=== PATIENT | female | born 1965 | race Caucasian/White ===

== ENCOUNTER 2023-02-09 11:57 | Outpatient (CLI) | payer BC | END 2023-02-09 11:58 | disposition home or self-care (01) | LOC: CSHMAMMO 11:57 | PROVIDERS: ATTEND Family Medicine | DX: Z12.31 Encounter for screening mammogram for malignant neoplasm of breast (principal); Z80.3 Family history of malignant neoplasm of breast | CPT/HCPCS: 77063; 77067 ==

== ENCOUNTER 2023-04-22 01:37 | Emergency (ER) | payer BC ==
[2023-04-22 02:12] LABS: #Basophils 0.1 10x3/uL (0.0-0.2); #Eosinphils 0.3 10x3/uL (0.0-0.5); #Monocytes 0.7 10x3/uL (0.0-1.1); %Basophils 0.8 % (0.0-2.0); %Eosinophils 3.5 % (0.0-6.0); %Lymphocytes 40.7 % (18.0-47.0); %Monocytes 7.8 % (0.0-10.0); Hemoglobin 11.2 g/dL (12.0-15.5); Mean Corpuscular Hemoglobin 24.3 pg (27.0-33.0); Mean Corpuscular Volume 78.5 fl (81.6-98.3); Platelet Count 302 10x3/uL (150-450); RBC Distribution Width 18.5 % (11.5-14.5); White Blood Cell (WBC) Count 8.5 10x3/uL (3.5-10.5)
[2023-04-22 02:25] LABS: BHCG - Serum Negative (NEGATIVE); Pregs Control Background? CLEAR/WHITE (CLR/WHITE); Pregs Control Bar Appear? YES (CONTROL BAR)
[2023-04-22 02:27] LABS: ALT (SGPT) 19 U/L (8-55); AST (SGOT) 19 U/L (5-34); Albumin 4.3 g/dL (3.5-5.0); Alkaline Phosphatase 100 U/L (40-110); Anion Gap 18 mmol/L (10-20); BUN (Urea Nitrogen) 17 mg/dL (9.8-20.1); Bilirubin, Total 0.2 mg/dL (0.2-1.2); Calc. Creatinine Clearance 0 mL/min (70-130); Calcium 9.2 mg/dL (7.8-10.44); Carbon Dioxide 24 mmol/L (22-29); Chloride 105 mmol/L (98-107); Estimated GFR 63; Globulin 3.3 g/dL (2.4-3.5); Glucose 138 mg/dL (70-105); Potassium 3.7 mmol/L (3.5-5.1); Protein, Total 7.6 g/dL (6.0-8.3); Sodium 143 mmol/L (136-145)
== END 2023-04-22 06:41 | disposition home or self-care (01) ==
LOC: CSHERS 01:37
DX: N94.6 Dysmenorrhea, unspecified (principal); E78.5 Hyperlipidemia, unspecified
CPT/HCPCS: 76856; 80053; 84703; 85025; 86850; 86900; 86901

== ENCOUNTER 2023-07-19 06:08 | Day surgery (SDC) | payer BC ==
[2023-07-14 09:52] LABS: Hematocrit 37.5 % (34.9-44.5); Hemoglobin 11.2 g/dL (12.0-15.5); Mean Corpuscular HGB CONC 29.9 g/dL (32.0-36.0); Mean Corpuscular Hemoglobin 23.5 pg (27.0-33.0); Mean Corpuscular Volume 78.8 fl (81.6-98.3); Mean Platelet Volume 10.4 fl (7.4-10.4); Platelet Count 242 10x3/uL (150-450); RBC Distribution Width 16.1 % (11.5-14.5); Red Blood Cell (RBC) Count 4.76 10x6/uL (3.90-5.03)
[2023-07-14 10:20] LABS: BHCG - Serum Negative (NEGATIVE); Pregs Control Background? CLEAR/WHITE (CLR/WHITE); Pregs Control Bar Appear? YES (CONTROL BAR)
[2023-07-14 11:14] LABS: Anion Gap 15 mmol/L (10-20); BUN (Urea Nitrogen) 13 mg/dL (9.8-20.1); Calc. Creatinine Clearance 0 mL/min (70-130); Calcium 9.1 mg/dL (7.8-10.44); Carbon Dioxide 21 mmol/L (22-29); Chloride 105 mmol/L (98-107); Estimated GFR 81; Glucose 133 mg/dL (70-105); Potassium 4.1 mmol/L (3.5-5.1); Sodium 137 mmol/L (136-145)
[2023-07-15 08:34] VITALS: BMI 44.4
[2023-07-19] MEDS ORDERED: Gabapentin 300 MG CAP ONE (06:12)
[2023-07-19] MEDS ORDERED: Famotidine/PF 20 mg/2ml Vial ONE (06:12)
[2023-07-19] MEDS ORDERED: CeleCOXIB 100 MG CAP ONE (06:12)
[2023-07-19] MEDS ORDERED: Bupivacaine PF 0.5% 30 ML VIAL ONE (06:23)
[2023-07-19] MEDS ORDERED: EPINEPHrine 1 MG/ML VIAL ONE (06:23)
[2023-07-19] MEDS ORDERED: Sevoflurane 250 ML INH ANEST BOTTLE ONE (06:24)
[2023-07-19] MEDS ORDERED: Dexamethasone 20 MG/5 ML VIAL ONE (06:40)
[2023-07-19] MEDS ORDERED: Ondansetron PF 4 MG/2 ML Vial ONE (06:40)
[2023-07-19] MEDS ORDERED: Rocuronium Bromide 10 MG/ML (10ML VIAL) ONE (06:40)
[2023-07-19] MEDS ORDERED: fentaNYL 50 mcg/mL 1 mL Vial ONE ×2 (06:47→08:12)
[2023-07-19] MEDS ORDERED: PROPOFOL 20 ML ONE ×2 (06:47→09:01)
[2023-07-19] MEDS ORDERED: CEFAZOLIN 2 GM VIAL ONE (07:05)
[2023-07-19] MEDS ORDERED: ePHEDrine Sulfate 50 MG/10 ML VIAL ONE (07:55)
[2023-07-19] MEDS ORDERED: HYDROcodone/Acetaminophen 5/325 mg Tablet ONE (11:07)
== END 2023-07-19 13:30 | disposition home or self-care (01) ==
LOC: CSHSDC 06:08
PROVIDERS: ATTEND Student in an Organized Health Care Education/Training Program
PROC: 0UB74ZZ Excision of Bilateral Fallopian Tubes, Percutaneous Endoscopic Approach (ICD-10-PCS; principal; 2023-07-19)
PROC: 0UB04ZZ Excision of Right Ovary, Percutaneous Endoscopic Approach (ICD-10-PCS; principal; 2023-07-19)
PROC: 0UT94ZZ Resection of Uterus, Percutaneous Endoscopic Approach (ICD-10-PCS; principal; 2023-07-19)
DX: D25.9 Leiomyoma of uterus, unspecified (principal); D27.0 Benign neoplasm of right ovary; N80.00 Endometriosis of the uterus, unspecified; N73.6 Female pelvic peritoneal adhesions (postinfective); N87.9 Dysplasia of cervix uteri, unspecified; N93.9 Abnormal uterine and vaginal bleeding, unspecified; J45.909 Unspecified asthma, uncomplicated; G47.33 Obstructive sleep apnea (adult) (pediatric); Z86.73 Personal history of transient ischemic attack (TIA), and cerebral infarction without residual deficits
CPT/HCPCS: 80048; 84703; 85027; 86850; 86900; 86901; 88307; J0171; J1100; J2405; J2704; J3010; S0020; S0028

== ENCOUNTER 2024-04-15 14:38 | Emergency (ER) | payer BC ==
[2024-04-15] MEDS ORDERED: Cyclobenzaprine 10 MG TAB ONE (16:11)
[2024-04-15] MEDS ORDERED: Ketorolac Tromethamine 30 MG (1 mL) VIAL ONE (16:11)
[2024-04-15] MEDS ORDERED: Gabapentin 300 MG CAP ONE (16:12)
[2024-04-15] MEDS ORDERED: Lidocaine 4% Patch TD SCH (17:15)
[2024-04-15] MEDS ORDERED: Dexamethasone 10 MG/ML VIAL ONE (18:04)
[2024-04-15] MEDS ORDERED: HYDROcodone/Acetaminophen 5/325 mg Tablet ONE (18:14)
== END 2024-04-15 19:41 | disposition home or self-care (01) ==
LOC: CSHERS 14:38
DX: M54.12 Radiculopathy, cervical region (principal); Z86.73 Personal history of transient ischemic attack (TIA), and cerebral infarction without residual deficits
CPT/HCPCS: 96372; 99283; J1100; J1885

== ENCOUNTER 2024-06-26 14:04 | Outpatient (CLI) | payer BC | END 2024-06-26 14:05 | disposition home or self-care (01) | LOC: CSHMAMMO 14:04 | PROVIDERS: ATTEND Student in an Organized Health Care Education/Training Program | DX: N64.89 Other specified disorders of breast (principal) | CPT/HCPCS: G0279 ==